=== PATIENT | male | born 1990 | race Caucasian/White ===

== ENCOUNTER 2016-09-17 13:52 | Emergency (ER) | payer OTHER ==
[~2016-09-17] VITALS: Ht 177.8 cm; Wt 119.6 kg
[~2016-09-17 13:52] MED LIST: AMOXICILLIN875 MG PO; ASPIR 8181 M1 PO; BACTRIM,SEPT1 TABLET PO; BUSPIRONE HCL10 MG PO; CLONAZEPAM0.5 MG PO; DEXILANT60 MG PO; FLEXERIL10 MG PO; FLUOXETINE HCL40 MG PO; HYOMAX-DT0.375 MG PO; KEFLEX500 MG PO; METAMUCIL CAPSU1 CAP PO; METFORMIN HCL500 MG PO; NAPROSYN500 MG PO; NUCYNTA50 MG PO; PERCOCET 5/31 TABLET PO; PRILOSEC40 MG PO; PROTONIX40 MG PO; PROZAC20 MG PO; VENLAFAXINE HC150 M1 PO; VENLAFAXINE HCL75 M3 PO; VENTOLIN HFA18 GM IH; VITAMIN D1000 INTUN PO; VITAMIN D1000 UNIT PO; VITAMIN D310000 UNI1 PO; VOLTAREN 0.1%2.5 ML BOTH EYES; XARELTO15 MG PO; XARELTO20 MG PO; ZANTAC150 MG PO; ZOFRAN4 MG PO
[2016-09-17 15:00] LABS: ADD MIUA? NO; BILIRUBIN NEGATIVE; BLOOD NEGATIVE; COLOR YELLOW ((YELLOW)); GLUCOSE (STRIP) NEGATIVE; KETONES NEGATIVE; LEUKOCYTES NEGATIVE; NITRITE NEGATIVE; PROTEIN (STRIP) NEGATIVE; SPECIFIC GRAVITY 1.017 (1.000-1.030); UROBILINOGEN 0.2 MG/DL (0.2-1.0)
[2016-09-17 15:09] LABS: EOSINOPHIL (%) 0.8 % (0-5); EOSINOPHIL COUNT 0.1 K/uL (0-0.3); HEMATOCRIT 47.4 % (38.0-50.0); IMMATURE GRANULOCYTE (%) 0.1 % (0.0-0.7); IMMATURE GRANULOCYTE COUNT 0.1 K/uL; LYMPHOCYTE COUNT 0.8 K/uL (1.0-2.8); MCH 27.7 PG (29.0-34.0); MCHC 33.3 G/DL (30.0-36.0); MCV 83.2 FL (86-99); MEAN PLAT.VOLUME 12.3 uM^3 (9.0-12.4); MONOCYTE (%) 5.3 % (3-12); MONOCYTE COUNT 0.6 K/uL (0-0.8); NEUTROPHIL (%) 87.1 % (45-76); NEUTROPHIL COUNT 10.1 K/uL (1.8-6.4); PLATELET COUNT 196 K/uL (156-360); RBC DIS.WIDTH-CV 14.8 % (11.8-14.6); RBC DIS.WIDTH-SD 44.9 % (39-53); WHITE BLOOD COUNT 11.6 K/uL (4.1-10.2)
[2016-09-17 15:19] LABS: CHLORIDE 107 mEq/L (99-109); POTASSIUM 3.9 mEq/L (3.7-5.4); SODIUM 139 mEq/L (136-147)
[2016-09-17 15:20] LABS: AMYLASE 74 IU/L (1-118)
[2016-09-17 15:21] LABS: GLUCOSE 89 mg/dL (70-99)
[2016-09-17 15:22] LABS: ANION GAP 8 MEQ/L (2-14)
[2016-09-17 15:25] LABS: ALKALINE PHOSPHATASE 73 IU/L (3-129); GFR ESTIMATE (CALCULATED) > 59 mL/min/
[2016-09-17 15:26] LABS: UREA NITROGEN (BUN) 9 mg/dL (9-23)
[2016-09-17 15:28] LABS: LIPASE 23 U/L (1.0-51.0)
[2016-09-17] MEDS ORDERED: CITRATE OF MAG296 ML PO (16:36)
[2016-09-17] MEDS ORDERED: BENTYL20 MG PO (16:36)
[2016-09-17 16:53] VITALS: BP 117/70
== END 2016-09-17 16:54 | disposition home or self-care (01) ==
LOC: EME 13:52
PROVIDERS: Physician Assistant
DX: R10.31 Right lower quadrant pain (principal); R10.11 Right upper quadrant pain; K59.00 Constipation, unspecified; E11.9 Type 2 diabetes mellitus without complications
CPT/HCPCS: 74177; 80053; 81003; 82150; 83690; 85025; 99281; 99285; J1885; J2405; J3010; J7030

== ENCOUNTER 2017-01-04 15:14 | Emergency (ER) | payer OTHER ==
[~2017-01-04] VITALS: Ht 175.3 cm; Wt 118.0 kg
[~2017-01-04 15:14] MED LIST changes: +BENTYL20 MG PO; +CITRATE OF MAG296 ML PO
[2017-01-04 18:44] LABS: HEMATOCRIT 47.1 % (38.0-50.0); MCH 27.9 PG (29.0-34.0); MCHC 33.1 G/DL (30.0-36.0); MCV 84.3 FL (86-99); MEAN PLAT.VOLUME 12.5 uM^3 (9.0-12.4); PLATELET COUNT 190 K/uL (156-360); RBC DIS.WIDTH-CV 13.8 % (11.8-14.6); RBC DIS.WIDTH-SD 42.6 % (39-53); RED BLOOD COUNT 5.59 M/uL (4.00-5.50); WHITE BLOOD COUNT 8.1 K/uL (4.1-10.2)
[2017-01-04 18:59] LABS: CHLORIDE 106 mEq/L (99-109); POTASSIUM 3.9 mEq/L (3.7-5.4); SODIUM 138 mEq/L (136-147)
[2017-01-04 19:01] LABS: GLUCOSE 87 mg/dL (70-99)
[2017-01-04 19:02] LABS: ANION GAP 8 MEQ/L (2-14)
[2017-01-04 19:03] LABS: TOTAL BILIRUBIN 1.1 mg/dL (0.0-1.0)
[2017-01-04 19:04] LABS: ALKALINE PHOSPHATASE 81 IU/L (3-129)
[2017-01-04 19:05] LABS: GFR ESTIMATE (CALCULATED) > 59 mL/min/
[2017-01-04 19:06] LABS: UREA NITROGEN (BUN) 7 mg/dL (9-23)
[2017-01-04] MEDS ORDERED: PEPCID20 MG PO (19:16)
[2017-01-04] MEDS ORDERED: PREDNISONE20 MG PO (19:16)
[2017-01-04] MEDS ORDERED: MYCELEX10 MG PO (19:18)
[2017-01-04 19:26] VITALS: BP 112/79
== END 2017-01-04 19:32 | disposition home or self-care (01) ==
LOC: EME 15:14
PROVIDERS: Physician Assistant
DX: L30.9 Dermatitis, unspecified (principal); K21.9 Gastro-esophageal reflux disease without esophagitis; F17.200 Nicotine dependence, unspecified, uncomplicated
CPT/HCPCS: 80053; 85027; 99281; 99284; J7512

== ENCOUNTER 2017-06-14 22:36 | Emergency (ER) | payer OTHER ==
[~2017-06-14] VITALS: Ht 175.3 cm; Wt 120.7 kg
[~2017-06-14 22:36] MED LIST changes: +MYCELEX10 MG PO; +PEPCID20 MG PO; +PREDNISONE20 MG PO
[2017-06-15] MEDS ORDERED: PERCOCET 5/31 TABLET PO (03:12)
[2017-06-15] MEDS ORDERED: VALIUM5 MG PO (03:12)
[2017-06-15 03:50] VITALS: BP 131/89
== END 2017-06-15 03:51 | disposition home or self-care (01) ==
LOC: EME 22:36
DX: M79.602 Pain in left arm (principal); D68.62 Lupus anticoagulant syndrome; Z86.718 Personal history of other venous thrombosis and embolism; K21.9 Gastro-esophageal reflux disease without esophagitis; F32.9 Major depressive disorder, single episode, unspecified; F41.9 Anxiety disorder, unspecified; F17.200 Nicotine dependence, unspecified, uncomplicated
CPT/HCPCS: 93971; 99281; 99284